=== PATIENT | female | born 1945 | race Caucasian/White ===

== ENCOUNTER 2017-08-10 19:20 | Inpatient (IN) | payer MEDICARE, BC ==
[~2017-08-10] VITALS: Ht 167.6 cm; Wt 59.4 kg
[2017-08-10 19:40] VITALS: BP 148/77
[2017-08-10 20:20] LABS: ABSOLUTE BASOPHILS 0.1 thou/uL (0.0-0.2); ABSOLUTE EOSINOPHILS 0.4 thou/uL (0.0-0.7); ABSOLUTE LYMPHOCYTES 2.1 thou/uL (0.8-5.3); ABSOLUTE MONOCYTES 0.4 thou/uL (0.0-1.2); ABSOLUTE NEUTROPHILS 1.3 thou/uL (1.6-8.1); BASOPHILS 1.9 %; EOSINOPHILS 9.6 %; HEMATOCRIT 30.1 % (37.0-47.0); HEMOGLOBIN 9.9 gm/dL (12.0-15.0); LYMPHOCYTES 48.7 %; MCH 29.8 pg (26.0-34.0); MCHC 32.9 g/dL (28.0-37.0); MCV 90.7 fL (80.0-100.0); MONOCYTES 9.6 %; MPV 8.2 fl. (7.2-11.1); NUCLEATED RBCS 0 /100WBC; PLATELET COUNT* 201 thou/uL (150-400); POLYS 30.2 %; RBC 3.32 mil/uL (4.20-5.00); RDW-CV 15.6 % (10.5-14.5); WBC 4.2 thou/uL (4.0-11.0)
[2017-08-10] MEDS ORDERED: ZANAFLEX2 MG PO (20:23)
[2017-08-10] MEDS ORDERED: ZOFRAN ODT4 MG PO (20:23)
[2017-08-10] MEDS ORDERED: OXYCONTIN10 M1 PO (20:24)
[2017-08-10] MEDS ORDERED: VALIUM5 MG (20:24)
[2017-08-10] MEDS ORDERED: NITROGLYCERIN0.4 MG PO (20:25)
[2017-08-10] MEDS ORDERED: MUPIROCIN22 GM TOP (20:25)
[2017-08-10] MEDS ORDERED: SYNTHROID50 MCG PO (20:27)
[2017-08-10] MEDS ORDERED: PRADAXA150 MG PO (20:27)
[2017-08-10] MEDS ORDERED: XIFAXAN550 M1 PO (20:28)
[2017-08-10] MEDS ORDERED: NORTHERA100 MG PO (20:28)
[2017-08-10 20:29] LABS: ANION GAP 6 mmol/L (7-16); BUN 11 mg/dL (7-18); CALCIUM 7.9 mg/dL (8.5-10.1); CHLORIDE 109 mmol/L (98-107); CO2 31 mmol/L (21-32); GLUCOSE 105 mg/dL (70-99); SODIUM 146 mmol/L (136-145)
[2017-08-10] MEDS ORDERED: RESTORIL15 MG PO (20:29)
[2017-08-10] MEDS ORDERED: TOPROL XL25 MG PO (20:29)
[2017-08-10] MEDS ORDERED: PROMS25 WY (20:30)
[2017-08-10] MEDS ORDERED: FLORINEF ACETA0.1 MG PO (20:30)
[2017-08-10] MEDS ORDERED: ONDANSETRON HCL4 M2 PO (20:31)
[2017-08-10] MEDS ORDERED: BENTYL 20 MG TA20 M1 PO (20:31)
[2017-08-10 20:32] LABS: INR 1.2; PROTIME 11.9 Seconds (9.20-11.50)
[2017-08-10] MEDS ORDERED: SAVELLA12.5 MG PO (20:33)
[2017-08-10] MEDS ORDERED: LOMOTIL TABLET1 EACH PO (20:34)
[2017-08-10] MEDS ORDERED: VITAMIN D1000 UNI1 PO (20:35)
[2017-08-10] MEDS ORDERED: BUTALB-APAP-CA1 EACH (20:36)
[2017-08-10] MEDS ORDERED: REGLAN 10 MG TA10 MG PO (20:37)
[2017-08-10 20:39] LABS: ALBUMIN 2.8 g/dL (3.4-5.0); ALKALINE PHOSPHATASE 115 U/L (46-116); NT-PRO BRAIN NAT PEPTIDE 9500 pg/mL (<300); SGOT 14 U/L (15-37); SGPT 13 U/L (30-65); TOTAL BILIRUBIN 0.2 mg/dL (<0.1-1.0); TOTAL PROTEIN 5.8 g/dL (6.4-8.2); TROPONIN-I LEVEL <0.06 ng/mL (<0.06)
[2017-08-10 20:44] LABS: POTASSIUM 2.8 mmol/L (3.5-5.1)
[2017-08-10] MEDS ORDERED: DURAGESIC1 EAC1 TRANSDERM (20:48)
[2017-08-10 21:39] LABS: URINE BILIRUBIN NEGATIVE (Negative); URINE BLOOD NEGATIVE (Negative); URINE CLARITY CLEAR; URINE COLOR YELLOW; URINE GLUCOSE-RANDOM NEGATIVE (Negative); URINE KETONES NEGATIVE (Negative); URINE LEUKOCYTES-REFLEX NEGATIVE (Negative); URINE NITRITE-REFLEX NEGATIVE (Negative); URINE PROTEIN NEGATIVE (Negative); URINE SPECIFIC GRAVITY >= 1.030 (1.005-1.030); URINE UROBILINOGEN 0.2 E.U./dl (0.2-1.0)
--- NOTE | 2017-08-10 22:30 | NUR ---
Pt son brought in multiple bottles of medications, duplicates, old bottles family unsure what or how much she takes. Pt states she doesn't have a list and is unsure of allergy at this time. Has a Fentanyl patch in place on abdomen that she put on today. No other patches were present in medications. Son states he will try to find out tomorrow from pharmacy what she takes. seems unclear on medications, found several bottles with wifes name on script but with his name penciled on them.
[2017-08-10 23:29] VITALS: BP 141/58
[2017-08-10 23:30] VITALS: BP 146/79
--- NOTE | 2017-08-11 | NUR ---
ASSUMED CARE AT 2330, REPORT RECEIVED FROM ER. PATIENT TO ROOM VIA CART. ADMISSION CHARTED. PATIENT UNABLE TO RECALL HOME MEDICATIONS, FREQUENCY, OR DOSAGES. PER ER REPORT, SON BROUGHT IN LARGE BAG FULL OF MULTIPLE HOME DUPLICATE MEDICATIONS. DR. ORTIZ MADE AWARE OF THIS. HOME MEDICATION LIST NOT UPDATED DUE TO THIS. PATIENT ALERT/ORIENTED X4, FORGETFUL AT TIMES, RESTING IN BED. PLACED ON TELE, SR. ON ROOM AIR, NO SOB NOTED, SATS 99%. SL INTACT TO RIGHT HAND, FLUSHES WELL. IVF INFUSING TO LEFT FOREARM PER AUG. UP WITH ASSIST TO BSC. DENIES NEEDS. STATES HAVING PAIN TO BACK, MEDS PER MAR WITH RELIEF NOTED. FENTANYL PATCH TO ABDOMEN. DR. CARMONA NOTIFIED REGARDING MED ORDERS, ORDERS RECEIVED AND NOTED. REFUSING SCD'S. ASSISTED TO TURN Q2H IN BED. HS SNACK GIVEN. BED ALARM ON. CALL LIGHT WITHIN REACH, ENCOURAGED TO CALL FOR NEEDS.
[2017-08-11 04:13] VITALS: BP 132/72
[2017-08-11 05:06] LABS: HEMOGLOBIN 9.1 gm/dL (12.0-15.0); MCH 29.5 pg (26.0-34.0); MCHC 32.4 g/dL (28.0-37.0); MPV 8.4 fl. (7.2-11.1); RBC 3.08 mil/uL (4.20-5.00); RDW-CV 15.2 % (10.5-14.5); WBC 4.4 thou/uL (4.0-11.0)
[2017-08-11 05:45] LABS: ALBUMIN 2.4 g/dL (3.4-5.0); CALCIUM 7.6 mg/dL (8.5-10.1); CREATININE 0.7 mg/dL (0.6-1.3); TOTAL BILIRUBIN 0.3 mg/dL (<0.1-1.0); TOTAL PROTEIN 5.2 g/dL (6.4-8.2)
[2017-08-11 05:49] LABS: POTASSIUM 2.9 mmol/L (3.5-5.1)
[2017-08-11 08:00] VITALS: BP 130/70
[2017-08-11 12:00] VITALS: BP 128/83
--- NOTE | 2017-08-11 12:17 | NUR ---
MET WITH PT TO DISCUSS HOME SITUATION/DC PLANNING. PT'S SPOUSE WAS HOSPITALIZED LAST WEEK AFTER [place]. PT LIVES WITH SPOUSE IN THEIR SON AND DIL'S HOME. THEY JUST MOVED THERE 2 WEEKS AGO TO HAVE MORE CARE. PT STATES SHE IS NORMALLY ABLE TO DO HER OWN ADLS, USES WALKER, SHOWER BENCH, TOILET RISER AND HAS W/C. PT IS FOLLOWED AT HOME BY [facility]. SPOKE WITH HER NURSE/ALYSSIA AT [phone]. HAVE ASKED THAT A CURRENT MED LIST BE FAXED OVER PER DR ORTIZ'S REQUEST. PT PLANS TO RETURN HOME AT DC WITH HER [facility], ALYSSIA SUGGESTED SHE HAVE PHYSICAL THERAPY ALSO. [facility] [phone] FAX [phone]
--- NOTE | 2017-08-11 12:52 | EKG ---
[place] [address] ELECTROCARDIOGRAM REPORT Name: MICHAEL GREGORY Room: [address] ADM IN [facility]#: [id number] Admission: 08/10/17 Attend Phys: Jaquelin Altamirano Discharge: Date of : 45 Report #: [id number] THIS REPORT FOR: //name// [facility] ED Test Date: 2017-08-10 Test Time: 19:45:27 Pat Name: MICHAEL GREGORY Department: Room: [facility] Gender: F Sap Basis: BD : 1945 Requested By: Kallie Sloan Order Number: [id number] MD: Michele Diaz Measurements Intervals [place] Rate: 67 P: 81 KS: 170 QRS: -32 QRSD: 100 T: 248 QT: 475 QTc: 502 Interpretive Statements Pacemaker spikes or artifacts Sinus rhythm Left axis deviation Anterior infarct, old Repol abnrm suggests ischemia, lateral leads Prolonged QT interval No previous ECG available for comparison Electronically Signed On 08-11-2017 12:51:58 A R COLLECTIONS REP by Michele Diaz [email or web address] <ELECTRONICALLY SIGNED> By: Michele Diaz MD, FAC 08/11/17 1251 [birth year] Michele Diaz MD, [facility] /EPI
[2017-08-11 16:00] VITALS: BP 140/62
[2017-08-11 20:00] VITALS: BP 147/71
[2017-08-12] VITALS: BP 131/67
[2017-08-12 04:00] VITALS: BP 164/78
--- NOTE | 2017-08-12 04:33 | NUR ---
ASSUMED PT CARE AT 1930, PT IS A&OX4, PT IS TRACING NSR ON THE MONITOR, ON RA SATTING MID TO HIGH 90'S. PT C/O A HEADACHE THROUGHOUT THE SHIFT, PRN PAIN MEDICATIONS GIVEN PER AUG. PT IS UP STB TO THE BSC, PT SEEMED TO SLEEP THOUGOUT THE NIGHT ON AND OFF, BED IN LOW POSITION, CALL LIGHT IN REACH, BED ALARM ON, YELLOW ARM BAND AND SOCKS IN [place]. HOURLY ROUNDING COMPLETED FOR PT SAFETY.
[2017-08-12 05:28] LABS: HEMOGLOBIN 10.8 gm/dL (12.0-15.0); MCH 29.4 pg (26.0-34.0); MCHC 32.7 g/dL (28.0-37.0); MCV 89.9 fL (80.0-100.0); MPV 8.9 fl. (7.2-11.1); RBC 3.66 mil/uL (4.20-5.00); RDW-CV 15.7 % (10.5-14.5); WBC 9.8 thou/uL (4.0-11.0)
[2017-08-12 06:36] LABS: ALBUMIN 2.6 g/dL (3.4-5.0); CALCIUM 8.1 mg/dL (8.5-10.1); CREATININE 0.8 mg/dL (0.6-1.3); MAGNESIUM 1.9 mg/dL (1.8-2.4); POTASSIUM 3.6 mmol/L (3.5-5.1); TOTAL BILIRUBIN 0.4 mg/dL (<0.1-1.0); TOTAL PROTEIN 5.9 g/dL (6.4-8.2)
[2017-08-12 08:00] VITALS: BP 150/73
[2017-08-12 11:44] VITALS: BP 131/68
--- NOTE | 2017-08-12 12:34 | NUR ---
ASSUMED CARE OF PATIENT THIS AM AT 0730. PATIENT IS ALERT AND ORIENTED X 4. SHE C/O ABDOMINAL AND BACK PAIN THIS AM. PATIENT MEDICATED FOR PAIN PO. SHE STATED THAT MEDICATION WAS SOMEWHAT EFFECTIVE. IV ANTIBIOTICS CONTINUED. PATIENT ASSISTED WITH ADLS NEEDED. TELE SHOWS SR. NO FALLS OR INJURY. WILL CONTINUE TO MONITOR.
[2017-08-12 17:00] VITALS: BP 145/77
[2017-08-12 20:00] VITALS: BP 143/72
[2017-08-13] VITALS: BP 149/63
[2017-08-13 04:20] VITALS: BP 154/82
--- NOTE | 2017-08-13 05:26 | NUR ---
END SHIFT: PT RESTED WELL. 1 EPISODE OF N/V OVER SHIFT. NEW IV PLACED AND TOLERATING IV ANTIBIOTICS WELL. NSR ON MONITOR. PAIN REPORTED IN HEAD AND BACK OVER SHIFT- PAIN MEDICATION GIVEN WITH GOOD RESULT. ASSESSMENT UNCHANGED. VSS. PERFORMED HOURLY ROUNDING. WILL CONT TO MONITOR.
[2017-08-13 08:07] VITALS: BP 147/89
--- NOTE | 2017-08-13 10:04 | NUR ---
ASSUMED CARE OF PATIENT AFTER REPORT THIS MORNING. PATIENT AWAKE, ALERT, AND ORIENTED APPROPRIATELY. PHYSICAL ASSESSMENT COMPLETED AND CHARTED. COMPLAINED OF HEADACHE. GIVEN PRN AND SCHEDULED MEDICATIONS, SEE EMAR FOR DOCUMENTATION. VITAL SIGNS STABLE. OXYGEN SATURATION WITHIN NORMAL LIMITS ON ROOM AIR. PATIENT LAYING IN BED AT THIS TIME. TRANSFERS AND AMBULATES WITH ASSISTANCE FROM STAFF. USES CALL LIGHT APPROPRIATELY. DENIES NEEDS AT THIS TIME. CALL LIGHT WITHIN REACH. NURSING WILL CONTINUE TO MONITOR.
[2017-08-13 11:07] LABS: CREATININE 0.7 mg/dL (0.6-1.3); POTASSIUM 3.4 mmol/L (3.5-5.1)
[2017-08-13 11:21] VITALS: BP 141/80
[2017-08-13 15:45] VITALS: BP 152/80
--- NOTE | 2017-08-13 17:40 | NUR ---
NO CHANGE IN PATIENT STATUS. HAD INCONTINENT DIARRHEA THIS AFTERNOON. PHYSICIAN MADE AWARE AND NEW ORDERS RECEIVED FOR PROBIOTICS BEFORE MEALS. ANTIBIOTICS WERE ALSO CHANGED. PATIENT COMPLAINED OF SORE THROAT AND REQUESTED NON-MEDICATED COUGH DROPS. RECEIVED FROM PHARMACY. CONTINUES TO BE UP WITH ASSISTANCE FROM STAFF. DENIES NEEDS AT THIS TIME. CALL LIGHT WITHIN REACH. NURSING WILL CONTINUE TO MONITOR.
[2017-08-13 20:00] VITALS: BP 141/72
[2017-08-14] VITALS: BP 140/75
--- NOTE | 2017-08-14 03:25 | NUR ---
ALERT AND ORIENTED X 4, UP TO BATHROOM WITH SBA. COMPLAINTS OF HEADACHE, PAIN MEDS ORDERED WITH EFFECTIVE RELIEF. CONT. TO MONITOR. NO SIGN OF DISTRESS AT THIS TIME. VSS. CALL LIGHT IN REACH. WILL PROCEED WITH CURRENT PLAN OF CARE AT THIS TIME.
[2017-08-14 05:05] LABS: HEMATOCRIT 29.1 % (37.0-47.0); HEMOGLOBIN 9.5 gm/dL (12.0-15.0); MCH 29.5 pg (26.0-34.0); MCHC 32.7 g/dL (28.0-37.0); MCV 90.3 fL (80.0-100.0); MPV 8.8 fl. (7.2-11.1); RBC 3.22 mil/uL (4.20-5.00); RDW-CV 15.5 % (10.5-14.5); WBC 5.2 thou/uL (4.0-11.0)
[2017-08-14 05:39] LABS: CALCIUM 7.7 mg/dL (8.5-10.1); CREATININE 0.7 mg/dL (0.6-1.3); MAGNESIUM 1.7 mg/dL (1.8-2.4); POTASSIUM 3.6 mmol/L (3.5-5.1)
[2017-08-14 08:00] VITALS: BP 160/85
[2017-08-14] MEDS ORDERED: LEVAQUIN 500 M500 M2 PO (09:55)
[2017-08-14] MEDS ORDERED: FERREX 150 PLU1 EAC1 PO (09:59)
[2017-08-14] MEDS ORDERED: DIAZEPAM2 MG PO (09:59)
[2017-08-14 11:36] VITALS: BP 160/85
--- NOTE | 2017-08-14 11:37 | NUR ---
ORDERS NOTED FOR DC HOME WITH HH, PT IS CURRENT WITH [facility]. CALLED AND FAXED ORDERS TO [facility]. MET WITH PT, SHE SIGNED AN OUTSIDE DNR, STATED HAD DISCUSSED WITH HER. COPY TO CHART. PT STATES HER WILL PICK HER UP LATER. ON OTHER NEEDS ID'D
--- NOTE | 2017-08-14 13:10 | NUR ---
PT DISCHARGED HOME WITH CAME TO RAIL SPECIALIST IV AND CUSTOM FURRIER DISCONTINUED NO QUESTIONS OR CONCERNS SCRIPTS GIVEN
== END 2017-08-14 13:15 | disposition home health service (06) | DRG 178 ==
LOC: M.ERS 19:20 → M.2W 22:32 → M.TBA-ER 22:32 → M.2W 22:52
PROVIDERS: Emergency Medicine; Internal Medicine; ADMIT Internal Medicine
DX: J15.6 Pneumonia due to other Gram-negative bacteria (principal); E85.9 Amyloidosis, unspecified; E44.1 Mild protein-calorie malnutrition; E87.6 Hypokalemia; I10 Essential (primary) hypertension; Z51.5 Encounter for palliative care; Z85.528 Personal history of other malignant neoplasm of kidney; Z79.899 Other long term (current) drug therapy